=== PATIENT | female | born 1965 | race Asian ===

== ENCOUNTER 2020-05-14 13:30 | Emergency (ER) | payer MEDICAID ==
[~2020-05-14] VITALS: Ht 157.5 cm; Wt 47.2 kg
[2020-05-14 13:32] VITALS: BP_DIAS 78
[2020-05-14 14:25] VITALS: BP_SYST 137
== END 2020-05-14 14:29 | disposition home or self-care (01) ==
LOC: ED 13:50
DX: K02.9 Dental caries, unspecified (principal); K08.89 Other specified disorders of teeth and supporting structures; F17.210 Nicotine dependence, cigarettes, uncomplicated
CPT/HCPCS: 99283